=== PATIENT | female | born 1995 | race Two or more races ===

== ENCOUNTER 2018-10-14 10:46 | Emergency (ER) | payer BC, OTHER ==
[~2018-10-14] VITALS: Ht 162.6 cm; Wt 77.7 kg
--- NOTE | 2018-10-14 11:00 | NUR ---
COUGH, FEVER, DIARRHEA - WATERY, X3 WEEKS, FEVER HIGH 105 PER PT. FAMILY AT BEDSIDE. CALL LIGHT WITHIN REACH.
[2018-10-14 11:29] LABS: BASOPHILS # (AUTO) 0.04 x10^3/uL (0-0.1); BASOPHILS % (AUTO) 0 % (0-1); EOSINOPHILS # (AUTO) 0.11 x10^3/uL (0-0.4); EOSINOPHILS % (AUTO) 1 % (1-7); LYMPHOCYTES # (AUTO) 1.79 x10^3/uL (1-3.4); LYMPHOCYTES % (AUTO) 21 % (22-44); MD NO; MEAN CORPUSCULAR HEMOGLOBIN 22.3 pg (27.0-34.8); MEAN CORPUSCULAR HGB CONC 31.5 g/dL (32.4-35.8); MEAN CORPUSCULAR VOLUME 70.7 fL (80-100); MEAN PLATELET VOLUME 9.7 fL (7.4-10.4); MONOCYTES % (AUTO) 6 % (2-9); NEUTROPHILS # (AUTO) 6.11 x10^3/uL (1.8-6.8); NEUTROPHILS % (AUTO) 72 % (42-75); PLATELET COUNT 345 x10^3/uL (130-400); RED BLOOD COUNT 5.48 x10^6/uL (3.82-5.3); RED CELL DISTRIBUTION WIDTH 18.8 % (9.6-15.2)
[2018-10-14 11:41] LABS: ALANINE AMINOTRANSFERASE 31 U/L (12-78); ALBUMIN 3.5 g/dL (3.4-5.0); ANION GAP 7 mmol/L (5-15); CHLORIDE 109 mmol/L (98-107)
--- NOTE | 2018-10-14 11:44 | NUR ---
PT RESTING IN [facility] WATCHING TV WITH AT BEDSIDE, AWAITING LAB RESULTS
[2018-10-14 11:46] LABS: ALKALINE PHOSPHATASE 127 U/L (45-117); BILIRUBIN,TOTAL 0.3 mg/dL (0.2-1.0); TOTAL PROTEIN 7.5 g/dL (6.4-8.2)
--- NOTE | 2018-10-14 12:48 | NUR ---
AWAITING STOOL SAMPLE, PT STATES WHEN SHE EATS SHE HAS TO GO, FOOD OK PER
--- NOTE | 2018-10-14 13:55 | NUR ---
STOOL RESULTS PENDING, PT RESTING IN [facility]
[2018-10-14 13:57] VITALS: BP 110/58
== END 2018-10-14 14:36 | disposition home or self-care (01) ==
LOC: ED 12:07
DX: J20.9 Acute bronchitis, unspecified (principal); B96.89 Other specified bacterial agents as the cause of diseases classified elsewhere; J45.909 Unspecified asthma, uncomplicated
CPT/HCPCS: 36415; 71046; 80053; 84703; 85025; 89055; 99284

== ENCOUNTER 2019-05-06 12:17 | Emergency (ER) | payer OTHER ==
[~2019-05-06] VITALS: Ht 165.1 cm; Wt 83.4 kg
--- NOTE | 2019-05-06 13:41 | NUR ---
HEAD CONCIERGE: PT TO ROOM FROM LOBBY WITH STEADY GAIT AT THIS TIME. CICI
[2019-05-06 14:14] VITALS: BP 109/83
[2019-05-06 14:51] LABS: MEAN CORPUSCULAR HEMOGLOBIN 23.8 pg (27.0-34.8); MEAN CORPUSCULAR HGB CONC 30.9 g/dL (32.4-35.8); MEAN CORPUSCULAR VOLUME 77.1 fL (80-100); PLATELET COUNT 318 x10^3/uL (130-400); RED BLOOD COUNT 5.38 x10^6/uL (3.82-5.3); RED CELL DISTRIBUTION WIDTH 19.4 % (9.6-15.2)
[2019-05-06 14:53] LABS: ALBUMIN 4.1 g/dL (3.4-5.0); ANION GAP 7 mmol/L (5-15); CALCIUM 9.3 mg/dL (8.5-10.1); CHLORIDE 107 mmol/L (98-107)
[2019-05-06 14:58] LABS: CREATININE 0.72 mg/dL (0.55-1.02)
[2019-05-06 15:42] LABS: MICROSCOPIC AUTO
[2019-05-06 15:45] LABS: CULTURE INDICATED? NO
[2019-05-06 15:51] LABS: BASOPHILS # (AUTO) 0.02 x10^3/uL (0-0.1); BASOPHILS % (AUTO) 0 % (0-1); EOSINOPHILS % (AUTO) 1 % (1-7); LYMPHOCYTES # (AUTO) 2.33 x10^3/uL (1-3.4); LYMPHOCYTES % (AUTO) 32 % (22-44); MD SCAN; MONOCYTES # (AUTO) 0.48 x10^3/uL (0.2-0.8); MONOCYTES % (AUTO) 7 % (2-9); NEUTROPHILS # (AUTO) 4.33 x10^3/uL (1.8-6.8); NEUTROPHILS % (AUTO) 60 % (42-75)
--- NOTE | 2019-05-06 16:35 | NUR ---
Patient/Caregiver given discharge instructions and they have confirmed that they understand the instructions. Patient ambulatory with steady gait.
== END 2019-05-06 16:46 | disposition home or self-care (01) ==
LOC: ED 16:40
DX: R42 Dizziness and giddiness (principal)
CPT/HCPCS: 36415; 80048; 81001; 82040; 84703; 85025; 93005; 99284

== ENCOUNTER 2019-07-11 12:03 | Observation (INO) | payer OTHER ==
[~2019-07-11] VITALS: Ht 165.1 cm; Wt 82.2 kg
--- NOTE | 2019-07-11 13:25 | NUR ---
PT HAS CO COUGH, SORE THRAOT, HOARSE VOICE, W CP FROM COUGHING FOR 1 WEEK W FEVER. WAS SEEN AT URGENT CARE AND PRESCRIBED BENZONATE. PT NOT IN RESP DISTRESS. DENIES N/V. ALSO HAS CO OF LEFT EYEBROW FACIAL SWELLING.
[2019-07-11] MEDS ORDERED: SODIUM CHLORIDE 0.9% 1,000ML IVBOLUS ONE ×2 (14:00→16:30)
[2019-07-11] MEDS ORDERED: methylPREDNISolone SOD SUCC 125 MG/2 ML IV ONE (14:00)
[2019-07-11] MEDS ORDERED: SODIUM CHLORIDE FLUSH 10ML SYR IVF ONE (14:00)
[2019-07-11] MEDS ORDERED: methylPREDNISolone SOD SUCC 125 MG/2 ML ONE (14:09)
[2019-07-11 14:17] LABS: BASOPHILS # (AUTO) 0.03 x10^3/uL (0-0.1); BASOPHILS % (AUTO) 0 % (0-1); EOSINOPHILS # (AUTO) 0.17 x10^3/uL (0-0.4); EOSINOPHILS % (AUTO) 1 % (1-7); LYMPHOCYTES # (AUTO) 1.65 x10^3/uL (1-3.4); LYMPHOCYTES % (AUTO) 11 % (22-44); MD NO; MEAN CORPUSCULAR HGB CONC 32.1 g/dL (32.4-35.8); MEAN CORPUSCULAR VOLUME 77.8 fL (80-100); MEAN PLATELET VOLUME 9.6 fL (7.4-10.4); MONOCYTES # (AUTO) 1.16 x10^3/uL (0.2-0.8); MONOCYTES % (AUTO) 8 % (2-9); NEUTROPHILS # (AUTO) 12.52 x10^3/uL (1.8-6.8); NEUTROPHILS % (AUTO) 81 % (42-75); PLATELET COUNT 299 x10^3/uL (130-400); RED CELL DISTRIBUTION WIDTH 17.5 % (9.6-15.2)
--- NOTE | 2019-07-11 14:18 | NUR ---
PT RESTING, IV ESTABLISHED, FLUIDS INFUSING. MEDICATED PER ORDERS. NO NEEDS AT THIS TIME
[2019-07-11 14:30] LABS: ALANINE AMINOTRANSFERASE 24 U/L (12-78); ALBUMIN 3.5 g/dL (3.4-5.0); ANION GAP 7 mmol/L (5-15); CALCIUM 9.1 mg/dL (8.5-10.1); CHLORIDE 108 mmol/L (98-107); CREATININE 0.59 mg/dL (0.55-1.02)
[2019-07-11 14:34] LABS: ALKALINE PHOSPHATASE 149 U/L (45-117); BILIRUBIN,TOTAL 0.6 mg/dL (0.2-1.0); TOTAL PROTEIN 8.1 g/dL (6.4-8.2)
[2019-07-11] MEDS ORDERED: OMNIPAQUE 350 MG/ML, 100ML BOTTLE ONE (15:08)
--- NOTE | 2019-07-11 15:30 | NUR ---
PT AMBULATED TO BATHROOM W STEADY GATE. NO NEEDS AT THIS TIME
--- NOTE | 2019-07-11 16:44 | NUR ---
DISCUSSED W CURRENT VS. WILL RECHECK WHEN IVF COMPLETE. PT NOT IN DISTRESS. NO NEEDS AT THIS TIME
--- NOTE | 2019-07-11 18:01 | NUR ---
AMBULATED TO BATHROOM. UA COLLECTED. PT HAS CO OF BURNING W VOIDING
[2019-07-11 18:11] LABS: MICROSCOPIC AUTO
[2019-07-11 18:21] LABS: CULTURE INDICATED? NO
--- NOTE | 2019-07-11 18:52 | NUR ---
AT BEDSIDE. PT STILL TACHY. UP TO 140 WHEN COUGHING OR W ACTIVITY. 115 WHILE SLEEPING. IVF INFUSING PER MD GARCIA
[2019-07-11] MEDS ORDERED: CEFTRIAXONE PMX 1GM/50ML 50 ML IVPB ONE (19:30)
[2019-07-11] MEDS ORDERED: AZITHROMYCIN 500 MG in SODIUM CHLORIDE 0.9% 250 ML IVPB ONE (19:30)
--- NOTE | 2019-07-11 19:43 | NUR ---
DISCUSSED W , PLAN FOR ADMIT BECAUSE PT HR IS SUSTAINED 120-140. PT AGREES TO PLAN FOR ADMIT
[2019-07-11] MEDS ORDERED: CEFTRIAXONE PMX 1GM/50ML 50 ML ONE (19:52)
[2019-07-11] MEDS ORDERED: SODIUM CHLORIDE FLUSH 10ML SYR IVF PRN (20:00)
--- NOTE | 2019-07-11 20:00 | NUR ---
ABX INFUSING. BLOOD CULTURES DRAWN
--- NOTE | 2019-07-11 20:20 | NUR ---
REPORT TO MICK
[2019-07-11 21:16] VITALS: BP 120/82
[2019-07-12] MEDS: ACETAMINOPHEN 325 MG TABLET PO PRN ×2 (01:34→16:45)
[2019-07-12 01:58] VITALS: BP 108/70
[2019-07-12] MEDS: SODIUM CHLORIDE 0.9% 1,000 ML IV SCH ×3 (04:21→17:12)
[2019-07-12] MEDS ORDERED: HYDROcodone/APAP 5/325 TABLET PO PRN (04:30)
[2019-07-12] MEDS ORDERED: ACETAMINOPHEN 325 MG TABLET PO PRN (04:30)
[2019-07-12] MEDS ORDERED: ONDANSETRON 2MG/ML, 2ML IVPush PRN (04:30)
[2019-07-12 05:30] LABS: RAPID INFLUENZA A Negative (Negative); RAPID INFLUENZA B Negative (Negative)
[2019-07-12 07:03] VITALS: BP 99/65
[2019-07-12] MEDS ORDERED: SODIUM CHLORIDE 0.9% 1,000ML IVBOLUS ONE (07:30)
[2019-07-12] MEDS: AMOXICILLIN/CLAV 875-125MG TABLET PO SCH ×2 (08:21→21:26)
[2019-07-12] MEDS: AZITHROMYCIN 500 MG TABLET PO SCH (08:21)
[2019-07-12 14:29] VITALS: BP 112/75
[2019-07-12 21:00] VITALS: BP 116/73
[2019-07-12] MEDS ORDERED: GUAIFENESIN/DM 200-20MG, 10ML UDC PO PRN (22:00)
[2019-07-13 01:40] VITALS: BP 102/70
[2019-07-13] MEDS: SODIUM CHLORIDE 0.9% 1,000 ML IV SCH ×2 (01:59→11:13)
[2019-07-13 05:16] LABS: BASOPHILS # (AUTO) 0.05 x10^3/uL (0-0.1); BASOPHILS % (AUTO) 0 % (0-1); EOSINOPHILS # (AUTO) 0.31 x10^3/uL (0-0.4); EOSINOPHILS % (AUTO) 3 % (1-7); LYMPHOCYTES # (AUTO) 3.68 x10^3/uL (1-3.4); LYMPHOCYTES % (AUTO) 30 % (22-44); MD NO; MEAN CORPUSCULAR HEMOGLOBIN 24.9 pg (27.0-34.8); MEAN CORPUSCULAR HGB CONC 31.4 g/dL (32.4-35.8); MEAN CORPUSCULAR VOLUME 79.3 fL (80-100); MEAN PLATELET VOLUME 9.7 fL (7.4-10.4); MONOCYTES # (AUTO) 0.71 x10^3/uL (0.2-0.8); MONOCYTES % (AUTO) 6 % (2-9); NEUTROPHILS # (AUTO) 7.58 x10^3/uL (1.8-6.8); NEUTROPHILS % (AUTO) 62 % (42-75); PLATELET COUNT 246 x10^3/uL (130-400); RED BLOOD COUNT 4.29 x10^6/uL (3.82-5.3)
[2019-07-13 05:18] LABS: ANION GAP 6 mmol/L (5-15); CALCIUM 7.7 mg/dL (8.5-10.1); CHLORIDE 115 mmol/L (98-107)
[2019-07-13 05:20] LABS: CREATININE 0.54 mg/dL (0.55-1.02)
[2019-07-13 08:14] VITALS: BP 106/72
[2019-07-13] MEDS: AMOXICILLIN/CLAV 875-125MG TABLET PO SCH (08:53)
[2019-07-13] MEDS: AZITHROMYCIN 500 MG TABLET PO SCH (08:53)
[2019-07-13] MEDS ORDERED: methylPREDNISolone SOD SUCC 125 MG/2 ML IVPush SCH (13:00)
[2019-07-13] MEDS ORDERED: ONDA4TAB13 SL (13:06)
[2019-07-13 13:36] VITALS: BP 109/73
== END 2019-07-13 16:00 | disposition home or self-care (01) ==
LOC: ED 16:56 → INTOOBSV 19:42 → EDIP 19:42 → 4WST 20:40 → DCLOUNGE 07-13 15:50
PROVIDERS: ADMIT Internal Medicine; ATTEND Family Medicine
DX: J06.9 Acute upper respiratory infection, unspecified (principal); J45.909 Unspecified asthma, uncomplicated; D72.829 Elevated white blood cell count, unspecified; A41.9 Sepsis, unspecified organism; J15.9 Unspecified bacterial pneumonia; R11.10 Vomiting, unspecified; Z79.899 Other long term (current) drug therapy
CPT/HCPCS: 36415; 71046; 71275; 80048; 80053; 81001; 83605; 84145; 84703; 85025; 87040; 87081; 87400; 87880; 93005; 96361; 96365; 96368; 96375; 99291; G0378; J0456; J0696; J2405; J2930; J7030; J7050; Q9967

== ENCOUNTER 2020-01-06 01:46 | Emergency (ER) | payer OTHER ==
[~2020-01-06] VITALS: Ht 162.6 cm; Wt 85.2 kg
[~2020-01-06 01:46] MED LIST: ONDA4TAB13 SL
--- NOTE | 2020-01-06 02:11 | NUR ---
PT TO US.
[2020-01-06 02:50] LABS: BASOPHILS # (AUTO) 0.03 x10^3/uL (0-0.1); BASOPHILS % (AUTO) 0 % (0-1); EOSINOPHILS # (AUTO) 0.16 x10^3/uL (0-0.4); EOSINOPHILS % (AUTO) 2 % (1-7); LYMPHOCYTES % (AUTO) 28 % (22-44); MD NO; MEAN CORPUSCULAR HEMOGLOBIN 25.7 pg (27.0-34.8); MEAN CORPUSCULAR HGB CONC 31.9 g/dL (32.4-35.8); MEAN CORPUSCULAR VOLUME 80.4 fL (80-100); MEAN PLATELET VOLUME 9.1 fL (7.4-10.4); MONOCYTES # (AUTO) 0.62 x10^3/uL (0.2-0.8); MONOCYTES % (AUTO) 6 % (2-9); NEUTROPHILS # (AUTO) 7.02 x10^3/uL (1.8-6.8); NEUTROPHILS % (AUTO) 65 % (42-75); PLATELET COUNT 302 x10^3/uL (130-400); RED BLOOD COUNT 4.78 x10^6/uL (3.82-5.3); RED CELL DISTRIBUTION WIDTH 16.9 % (9.6-15.2)
[2020-01-06 03:03] LABS: ALBUMIN 3.4 g/dL (3.4-5.0); ANION GAP 7 mmol/L (5-15); CALCIUM 8.6 mg/dL (8.5-10.1); CHLORIDE 107 mmol/L (98-107); CREATININE 0.69 mg/dL (0.55-1.02)
--- NOTE | 2020-01-06 03:23 | NUR ---
PT RESTING IN NAD. UA SENT TO LAB. SPOUSE AT BEDSIDE
[2020-01-06 03:34] LABS: MICROSCOPIC INDICATED
[2020-01-06 03:40] VITALS: BP 112/72
--- NOTE | 2020-01-06 04:00 | NUR ---
Patient given discharge instructions and they have confirmed that they understand the instructions. Patient ambulatory with steady gait.
== END 2020-01-06 04:02 ==
LOC: ED 03:56
DX: O20.0 Threatened abortion (principal); O99.511 Diseases of the respiratory system complicating pregnancy, first trimester; J45.909 Unspecified asthma, uncomplicated; R10.2 Pelvic and perineal pain; Z3A.08 8 weeks gestation of pregnancy
CPT/HCPCS: 36415; 76801; 80048; 81001; 82040; 84702; 85025; 86901; 99284

== ENCOUNTER 2020-01-07 11:52 | Outpatient (CLI) | payer OTHER ==
[2020-01-07 12:28] LABS: BASOPHILS # (AUTO) 0.02 x10^3/uL (0-0.1); BASOPHILS % (AUTO) 0 % (0-1); EOSINOPHILS # (AUTO) 0.12 x10^3/uL (0-0.4); EOSINOPHILS % (AUTO) 1 % (1-7); LYMPHOCYTES # (AUTO) 2.08 x10^3/uL (1-3.4); LYMPHOCYTES % (AUTO) 20 % (22-44); MD NO; MEAN CORPUSCULAR HEMOGLOBIN 26.2 pg (27.0-34.8); MEAN CORPUSCULAR HGB CONC 32.4 g/dL (32.4-35.8); MEAN PLATELET VOLUME 9.1 fL (7.4-10.4); MONOCYTES % (AUTO) 5 % (2-9); NEUTROPHILS # (AUTO) 7.81 x10^3/uL (1.8-6.8); NEUTROPHILS % (AUTO) 74 % (42-75); PLATELET COUNT 332 x10^3/uL (130-400)
[2020-01-07 13:21] LABS: FREE T4 (FREE THYROXINE) 0.99 ng/dL (0.76-1.46)
== END 2020-01-07 23:59 | disposition home or self-care (01) ==
LOC: LAB 11:52
PROVIDERS: ATTEND Obstetrics & Gynecology
DX: Z34.81 Encounter for supervision of other normal pregnancy, first trimester (principal); Z3A.00 Weeks of gestation of pregnancy not specified
CPT/HCPCS: 36415; 82306; 84439; 84443; 85025; 86592; 86762; 86787; 86803; 86850; 86900; 87086; 87147; 87340; 87806; G0475

== ENCOUNTER → 2020-04-14 | Outpatient (CLI) | payer OTHER ==
[2020-04-14 16:37] LABS: BASOPHILS % (AUTO) 0 % (0-1); EOSINOPHILS % (AUTO) 1 % (1-7); LYMPHOCYTES % (AUTO) 18 % (22-44); MD NO; MEAN CORPUSCULAR HEMOGLOBIN 26.3 pg (27.0-34.8); MEAN CORPUSCULAR HGB CONC 31.8 g/dL (32.4-35.8); MEAN PLATELET VOLUME 9.1 fL (7.4-10.4); MONOCYTES % (AUTO) 6 % (2-9); NEUTROPHILS % (AUTO) 74 % (42-75); PLATELET COUNT 263 x10^3/uL (130-400); RED BLOOD COUNT 4.12 x10^6/uL (3.82-5.3); RED CELL DISTRIBUTION WIDTH 16.3 % (9.6-15.2)
== END | disposition home or self-care (01) ==
LOC: LAB 15:15
PROVIDERS: ATTEND Obstetrics & Gynecology
DX: Z34.90 Encounter for supervision of normal pregnancy, unspecified, unspecified trimester (principal)
CPT/HCPCS: 36415; 82950; 85025; 86592

== ENCOUNTER 2020-05-20 15:31 | Outpatient (CLI) | payer OTHER ==
[~2020-05-20] VITALS: Ht 162.6 cm; Wt 85.0 kg
[2020-05-20 17:09] LABS: MICROSCOPIC INDICATED
[2020-05-20 19:52] LABS: BASOPHILS % (AUTO) 0 % (0-1); EOSINOPHILS % (AUTO) 1 % (1-7); LYMPHOCYTES % (AUTO) 24 % (22-44); MEAN CORPUSCULAR HEMOGLOBIN 27.3 pg (27.0-34.8); MEAN CORPUSCULAR HGB CONC 32.2 g/dL (32.4-35.8); MEAN PLATELET VOLUME 9.1 fL (7.4-10.4); MONOCYTES % (AUTO) 7 % (2-9); NEUTROPHILS % (AUTO) 68 % (42-75); PLATELET COUNT 226 x10^3/uL (130-400); RED BLOOD COUNT 4.33 x10^6/uL (3.82-5.3); RED CELL DISTRIBUTION WIDTH 18.3 % (9.6-15.2)
[2020-05-20 19:57] LABS: ALANINE AMINOTRANSFERASE 12 U/L (12-78); ALBUMIN 2.9 g/dL (3.4-5.0); ANION GAP 7 mmol/L (5-15); CALCIUM 8.4 mg/dL (8.5-10.1); CHLORIDE 109 mmol/L (98-107); MD NO
[2020-05-20 20:05] LABS: ALKALINE PHOSPHATASE 119 U/L (45-117); BILIRUBIN,TOTAL 0.2 mg/dL (0.2-1.0); C-REACTIVE PROTEIN, QUANT 0.97 mg/dL (0.02-0.49); CREATININE 0.46 mg/dL (0.55-1.02); TOTAL PROTEIN 6.9 g/dL (6.4-8.2)
== END 2020-05-20 20:55 | disposition home or self-care (01) ==
LOC: LDOP 15:31 → MERGE 15:31 → LDOP 20:55
PROVIDERS: ATTEND Obstetrics & Gynecology
DX: O26.893 Other specified pregnancy related conditions, third trimester (principal); R10.9 Unspecified abdominal pain; Z3A.28 28 weeks gestation of pregnancy
CPT/HCPCS: 36415; 76770; 76815; 80053; 81001; 85025; 86140; 87086; 99211; G0463

== ENCOUNTER 2020-06-22 20:43 | Outpatient (CLI) | payer SELFPAY ==
[~2020-06-22] VITALS: Ht 162.6 cm; Wt 90.9 kg
[2020-06-22 21:27] LABS: MICROSCOPIC NOT IND
[2020-06-22 22:12] LABS: FERNING TEST FERNING NOT PRESENT (NEGATIVE)
== END 2020-06-23 00:20 | disposition home or self-care (01) ==
LOC: LDOP 20:43
PROVIDERS: ATTEND Obstetrics & Gynecology
DX: O42.913 Preterm premature rupture of membranes, unspecified as to length of time between rupture and onset of labor, third trimester (principal); Z3A.32 32 weeks gestation of pregnancy
CPT/HCPCS: 59025; 76815; 81003; 84112; 89060; Q0114

== ENCOUNTER 2020-07-08 17:27 | Outpatient (CLI) | payer OTHER ==
[2020-07-08] MEDS ORDERED: ACETAMINOPHEN 500 MG TABLET ONE (17:47)
[2020-07-08] MEDS ORDERED: ACETAMINOPHEN 500 MG TABLET PO ONE (18:00)
[2020-07-08 18:14] LABS: MICROSCOPIC INDICATED
[2020-07-08 18:19] LABS: CREATININE,URINE RANDOM 90.5 mg/dL
[2020-07-08 18:28] LABS: BASOPHILS % (AUTO) 1 % (0-1); EOSINOPHILS % (AUTO) 1 % (1-7); LYMPHOCYTES % (AUTO) 22 % (22-44); MEAN CORPUSCULAR HEMOGLOBIN 28.5 pg (27.0-34.8); MEAN CORPUSCULAR HGB CONC 32.6 g/dL (32.4-35.8); MEAN PLATELET VOLUME 9.9 fL (7.4-10.4); MONOCYTES % (AUTO) 9 % (2-9); NEUTROPHILS % (AUTO) 68 % (42-75); PLATELET COUNT 185 x10^3/uL (130-400); RED BLOOD COUNT 4.41 x10^6/uL (3.82-5.3)
[2020-07-08 18:34] LABS: ALANINE AMINOTRANSFERASE 12 U/L (12-78); ALBUMIN 2.6 g/dL (3.4-5.0); ANION GAP 5 mmol/L (5-15); CALCIUM 8.4 mg/dL (8.5-10.1); CHLORIDE 111 mmol/L (98-107); CREATININE 0.57 mg/dL (0.55-1.02)
[2020-07-08 18:36] LABS: ALKALINE PHOSPHATASE 149 U/L (45-117); BILIRUBIN, DIRECT < 0.1 mg/dL (0.1-0.2); BILIRUBIN,TOTAL 0.1 mg/dL (0.2-1.0); TOTAL PROTEIN 6.2 g/dL (6.4-8.2)
[2020-07-08 18:51] LABS: MD NO
[2020-07-08] MEDS ORDERED: MAGN400T36 PO ×2 (19:26→19:27)
== END 2020-07-08 20:00 | disposition home or self-care (01) ==
LOC: LDOP 17:27
PROVIDERS: ATTEND Obstetrics & Gynecology
DX: O26.893 Other specified pregnancy related conditions, third trimester (principal); R51.9 Headache, unspecified; Z3A.35 35 weeks gestation of pregnancy
CPT/HCPCS: 36415; 59025; 80053; 81001; 82248; 82570; 84156; 84550; 85025

== ENCOUNTER → 2020-07-20 | Outpatient (CLI) | payer OTHER ==
[~2020-07-20] VITALS: Ht 162.6 cm; Wt 94.0 kg
[~2020-07-20] MED LIST changes: +MAGN400T36 PO
== END | disposition home or self-care (01) ==
LOC: LDOP 00:14
PROVIDERS: ATTEND Obstetrics & Gynecology
DX: O26.893 Other specified pregnancy related conditions, third trimester (principal); Z3A.36 36 weeks gestation of pregnancy
CPT/HCPCS: 59025

== ENCOUNTER 2020-07-23 02:01 | Outpatient (CLI) | payer OTHER ==
[2020-07-23 02:53] LABS: MICROSCOPIC NOT IND
== END 2020-07-23 04:02 | disposition home or self-care (01) ==
LOC: LDOP 02:01
PROVIDERS: ATTEND Obstetrics & Gynecology
DX: O42.92 Full-term premature rupture of membranes, unspecified as to length of time between rupture and onset of labor (principal); Z3A.37 37 weeks gestation of pregnancy
CPT/HCPCS: 59025; 81003; 87086; 89060; Q0114

== ENCOUNTER 2020-08-05 11:53 | Inpatient (IN) | payer OTHER ==
[~2020-08-05] VITALS: Ht 162.6 cm; Wt 94.0 kg
[2020-08-05 12:13] VITALS: BP 124/92
[2020-08-05] MEDS ORDERED: PREN1TAB62 PO (12:18)
[2020-08-05 12:31] LABS: ALBUMIN 3.1 g/dL (3.4-5.0); ANION GAP 8 mmol/L (5-15); BASOPHILS % (AUTO) 0 % (0-1); CALCIUM 9.2 mg/dL (8.5-10.1); CHLORIDE 108 mmol/L (98-107); EOSINOPHILS % (AUTO) 1 % (1-7); LYMPHOCYTES % (AUTO) 21 % (22-44); MD NO; MEAN CORPUSCULAR HGB CONC 32.8 g/dL (32.4-35.8); MEAN PLATELET VOLUME 10.6 fL (7.4-10.4); MONOCYTES % (AUTO) 6 % (2-9); NEUTROPHILS % (AUTO) 72 % (42-75); PLATELET COUNT 178 x10^3/uL (130-400); RED BLOOD COUNT 4.99 x10^6/uL (3.82-5.3); RED CELL DISTRIBUTION WIDTH 16.7 % (9.6-15.2)
[2020-08-05 12:36] LABS: ALANINE AMINOTRANSFERASE 13 U/L (12-78); ALKALINE PHOSPHATASE 190 U/L (45-117); BILIRUBIN,TOTAL 0.2 mg/dL (0.2-1.0); CREATININE 0.66 mg/dL (0.55-1.02)
[2020-08-05 12:38] LABS: BILIRUBIN, DIRECT < 0.1 mg/dL (0.1-0.2)
[2020-08-05 12:41] LABS: MICROSCOPIC INDICATED
[2020-08-05] MEDS ORDERED: PENICILLIN GK 5,000,000 UNITS in DEXTROSE 5% 100 ML IVPB ONE (14:00)
[2020-08-05] MEDS ORDERED: FENTANYL PF 100 MCG/2ML IV PRN (14:00)
[2020-08-05] MEDS ORDERED: TERBUTALINE 1 MG/ML, 1ML SQ PRN (14:00)
[2020-08-05] MEDS ORDERED: ONDANSETRON 2MG/ML, 2ML IVPush PRN ×2 (14:00→20:30)
[2020-08-05] MEDS ORDERED: TERBUTALINE 1 MG/ML, 1ML IVPush PRN (14:00)
[2020-08-05] MEDS: D5%-LACTATED RINGERS 1,000 ML IV SCH ×2 (14:00→22:00)
[2020-08-05] MEDS ORDERED: OXYTOCIN 30U/ 0.9% NaCL 500ML 500 ML IV ONE (14:00)
[2020-08-05] MEDS ORDERED: FENTANYL PF 100 MCG/2ML IVPush PRN (14:00)
[2020-08-05] MEDS ORDERED: CALCIUM CARBONATE 500 MG TAB.CHEW PO PRN (14:00)
[2020-08-05] MEDS ORDERED: LIDOCAINE 1%, 10ML ONE (14:12)
[2020-08-05] MEDS ORDERED: LIDOCAINE 1%, 20ML ONE (14:12)
[2020-08-05] MEDS ORDERED: OXYTOCIN 30U/ 0.9% NaCL 500ML 500 ML ONE (14:12)
[2020-08-05] MEDS ORDERED: NEWBORN KIT ONE (14:12)
[2020-08-05] MEDS ORDERED: MISOPROSTOL 200 MCG TABLET ONE (14:14)
[2020-08-05] MEDS: LACTATED RINGERS 1,000 ML IV SCH ×2 (14:20→22:43)
[2020-08-05] MEDS ORDERED: OXYTOCIN 30U/ 0.9% NaCL 500ML 500 ML IV PRN (14:30)
[2020-08-05 15:00] VITALS: BP 113/75
[2020-08-05] MEDS: PENICILLIN GK 2,500,000 UNITS in DEXTROSE 5% 100 ML IVPB SCH ×2 (18:59→22:50)
[2020-08-05] MEDS ORDERED: FENTANYL/BUPIV./NS/PF 250 ML EPIDCONT ONE (19:33)
[2020-08-05] MEDS ORDERED: BUPIVACAINE 0.25% ONE (19:44)
[2020-08-05 20:00] VITALS: BP 131/85
[2020-08-05] MEDS ORDERED: NALOXONE 0.4 MG/ML, 1ML IVPush PRN (20:30)
[2020-08-05] MEDS ORDERED: EPHEDRINE 50 MG/ML, 1ML IVPush PRN (20:30)
[2020-08-05] MEDS ORDERED: LACTATED RINGERS 1,000 ML IVBOLUS PRN (20:30)
[2020-08-05] MEDS ORDERED: LACTATED RINGERS 1,000 ML IV SCH (20:30)
[2020-08-05] MEDS ORDERED: FENTANYL/BUPIV./NS/PF 250 ML EPIDCONT SCH (20:30)
[2020-08-05] MEDS ORDERED: DIPHENHYDRAMINE 50 MG/ML, 1ML IVPush PRN (20:30)
[2020-08-06] MEDS ORDERED: IBUPROFEN 600 MG TABLET ONE (01:51)
[2020-08-06] MEDS ORDERED: OXYTOCIN 30U/ 0.9% NaCL 500ML 500 ML ONE (01:51)
[2020-08-06] MEDS: IBUPROFEN 600 MG TABLET PO PRN ×4 (01:53→23:40)
[2020-08-06] MEDS ORDERED: ACETAMINOPHEN 325 MG TABLET PO PRN ×2 (02:00)
[2020-08-06] MEDS ORDERED: OXYTOCIN 30U/ 0.9% NaCL 500ML 500 ML IV SCH (02:00)
[2020-08-06] MEDS ORDERED: BISACODYL 10 MG SUPP PR PRN (02:00)
[2020-08-06] MEDS ORDERED: SIMETHICONE 80 MG CHEW TAB PO PRN (02:00)
[2020-08-06] MEDS ORDERED: HYDROcodone/APAP 5/325 TABLET PO PRN (02:00)
[2020-08-06] MEDS: OXYTOCIN 30U/ 0.9% NaCL 500ML 500 ML IV SCH ×4 (02:00→06:18)
[2020-08-06] MEDS ORDERED: ONDANSETRON 2MG/ML, 2ML IV PRN (02:00)
[2020-08-06] MEDS ORDERED: CALCIUM CARBONATE 500 MG TAB.CHEW PO PRN (02:00)
[2020-08-06] MEDS ORDERED: MISOPROSTOL 200 MCG TABLET PR PRN (02:00)
[2020-08-06 04:20] VITALS: BP 111/73
[2020-08-06 07:15] VITALS: BP 122/82
[2020-08-06 09:34] LABS: BASOPHILS % (AUTO) 0 % (0-1); EOSINOPHILS % (AUTO) 0 % (1-7); LYMPHOCYTES % (AUTO) 15 % (22-44); MEAN CORPUSCULAR HEMOGLOBIN 28.7 pg (27.0-34.8); MEAN CORPUSCULAR HGB CONC 32.9 g/dL (32.4-35.8); MEAN PLATELET VOLUME 10.5 fL (7.4-10.4); MONOCYTES % (AUTO) 6 % (2-9); NEUTROPHILS % (AUTO) 79 % (42-75); PLATELET COUNT 121 x10^3/uL (130-400); RED BLOOD COUNT 4.36 x10^6/uL (3.82-5.3); RED CELL DISTRIBUTION WIDTH 16.1 % (9.6-15.2)
[2020-08-06 09:35] LABS: MD NO
[2020-08-06] MEDS: DOCUSATE 100 MG CAPSULE PO PRN (10:35)
[2020-08-06] MEDS: HYDROcodone/APAP 5/325 TABLET PO PRN ×4 (10:35→23:40)
[2020-08-06] MEDS: PRENATAL VIT/IRON/FA 1 EACH TABLET PO SCH (10:35)
[2020-08-06 12:50] VITALS: BP 119/78
[2020-08-06 16:10] VITALS: BP 110/69
[2020-08-06 20:00] VITALS: BP 110/73
[2020-08-06 23:43] VITALS: BP 110/74
[2020-08-07] MEDS: HYDROcodone/APAP 5/325 TABLET PO PRN ×2 (03:32→12:28)
[2020-08-07 03:44] VITALS: BP 109/60
[2020-08-07 07:15] VITALS: BP 105/70
[2020-08-07] MEDS ORDERED: IBUP-1222 PO (08:02)
[2020-08-07] MEDS: PRENATAL VIT/IRON/FA 1 EACH TABLET PO SCH (08:26)
[2020-08-07] MEDS: DOCUSATE 100 MG CAPSULE PO PRN (08:26)
[2020-08-07] MEDS: IBUPROFEN 600 MG TABLET PO PRN (08:26)
[2020-08-07 12:29] VITALS: BP 118/82
== END 2020-08-07 12:36 | disposition home or self-care (01) | DRG 806 ==
LOC: LDOP 11:53 → EDIP 13:56 → LDIP 14:07 → 2NW 08-06 04:10
PROVIDERS: ADMIT Pediatrics; ATTEND Obstetrics & Gynecology
PROC: 10E0XZZ Delivery of Products of Conception, External Approach (ICD-10-PCS; principal; 2020-08-07)
PROC: 10907ZC Drainage of Amniotic Fluid, Therapeutic from Products of Conception, Via Natural or Artificial Opening (ICD-10-PCS; 2020-08-07)
PROC: 0HQ9XZZ Repair Perineum Skin, External Approach (ICD-10-PCS; 2020-08-07)
PROC: 3E033VJ Introduction of Other Hormone into Peripheral Vein, Percutaneous Approach (ICD-10-PCS; 2020-08-07)
PROC: 3E0R3BZ Introduction of Anesthetic Agent into Spinal Canal, Percutaneous Approach (ICD-10-PCS; 2020-08-07)
PROC: 00HU33Z Insertion of Infusion Device into Spinal Canal, Percutaneous Approach (ICD-10-PCS; 2020-08-07)
DX: O69.81X0 Labor and delivery complicated by cord around neck, without compression, not applicable or unspecified (principal); O99.354 Diseases of the nervous system complicating childbirth; Z37.0 Single live birth; Z3A.39 39 weeks gestation of pregnancy; O99.824 Streptococcus B carrier state complicating childbirth; E55.9 Vitamin D deficiency, unspecified; E66.9 Obesity, unspecified; G43.909 Migraine, unspecified, not intractable, without status migrainosus; J45.909 Unspecified asthma, uncomplicated; O14.04 Mild to moderate pre-eclampsia, complicating childbirth; O70.0 First degree perineal laceration during delivery; O99.214 Obesity complicating childbirth; O99.284 Endocrine, nutritional and metabolic diseases complicating childbirth; O99.52 Diseases of the respiratory system complicating childbirth; Z20.822 Contact with and (suspected) exposure to COVID-19; Z91.040 Latex allergy status; Z91.018 Allergy to other foods
CPT/HCPCS: 36415; 80053; 81001; 82248; 82570; 84156; 84550; 85025; 86592; 86850; 86900; 87635; G0378; J2540; J2590; J3010; J7120

== ENCOUNTER 2021-01-29 19:27 | Emergency (ER) | payer OTHER ==
[~2021-01-29 19:27] MED LIST changes: +IBUP-1222 PO; +PREN1TAB62 PO
== END 2021-01-30 19:49 ==
LOC: ED 19:36
DX: Z11.1 Encounter for screening for respiratory tuberculosis (principal); Z53.21 Procedure and treatment not carried out due to patient leaving prior to being seen by health care provider